=== PATIENT | female | born 1955 | race American Indian/Alaskan Native ===

== ENCOUNTER 2017-02-02 06:50 | Outpatient (CLI) | payer OTHER ==
--- NOTE | 2017-02-02 11:03 | Fluoroscopy Report ---
UPPER GI INDICATION: Dyspepsia. Lap band. COMPARISON: 03/23/2014 abdominal series. FINDINGS: Upper GI performed. Patient swallowed thick barium without any difficulty. Banquet Server view demonstrates normal appearance of the lap band and its connector tubing leading to the port overlying L4 vertebral body in the midline. Nonobstructive bowel gas pattern with ascending colon stool noted. Few pelvic vascular calcifications. Demineralized bones with multilevel spinal degenerative changes. Initial swallows demonstrate normal esophageal caliber and mucosal pattern, to the extent assessed, though subsequent swallows in conjunction with peristalsis, mildly distend the esophagus, greatest distally near the GE junction with caliber upto approximately 3 cm. Persistent stasis of barium column in the distal esophagus also noted. Small hiatal hernia possible. Small amount of contrast passage through the lab band into the remainder stomach though noted. Delayed, approximately 15 minutes post images again demonstrate dilated distal esophagus with maximum caliber upto 5-6 cm and persistent standing barium column. Increased contrast though now seen opacifying the remainder distal stomach and proximal small bowel. Normal imaged duodenum bulb and C-loop. CONCLUSION: 1. Slow passage of contrast through the lap band, as described with persistent standing contrast column in the dilated distal esophagus, as described. Please correlate. 2. Lap band radiographic appearance is though stable since March 2014. Few other incidental findings, as above. Thank you for the opportunity to participate in this patient's care.
== END 2017-02-02 06:51 | disposition home or self-care (01) ==
LOC: FLUORO 06:50
PROVIDERS: ATTEND Specialist
DX: K30 Functional dyspepsia (principal); K22.8 Other specified diseases of esophagus; N28.89 Other specified disorders of kidney and ureter
CPT/HCPCS: 74241

== ENCOUNTER 2017-08-31 09:03 | Outpatient (CLI) | payer OTHER ==
--- NOTE | 2017-09-03 10:24 | Mammography Report ---
BILATERAL MAMMOGRAM: FINDINGS: The breasts are almost entirely fat (<25% glandular). No mass, distortion, suspicious calcification, or skin change is seen. No significant change when compared to prior examination in 2015. CAD was utilized. IMPRESSION: Negative mammogram. There is no mammographic evidence of malignancy. RECOMMENDATION: Follow-up per ACS guidelines. BI-RADS CATEGORY: 1 = Negative ACR BI-RADS MAMMOGRAPHIC CODES: 0 = Needs additional imaging evaluation; 1 = Negative; 2 = Benign; 3 = Probably benign; 4 = Suspicious; 5 = Malignant; 6 = Known biopsy-proven malignancy COMMENT: 1. Dense breast tissue, i.e., adenosis, fibrocystic changes, etc., may obscure an underlying neoplasm. 2. Approximately 10% of cancers are not detected with mammography. 3. A negative mammography report should not delay biopsy if a clinically suspicious mass is present. COMMENT: Patient follow-up letters are generated in [employer].
== END 2017-08-31 09:04 | disposition home or self-care (01) ==
LOC: SPVWC 09:03
PROVIDERS: ATTEND Specialist
DX: Z12.31 Encounter for screening mammogram for malignant neoplasm of breast (principal)
CPT/HCPCS: 77067; G0202

== ENCOUNTER 2018-09-06 09:20 | Outpatient (CLI) | payer OTHER ==
--- NOTE | 2018-09-06 13:04 | Mammography Report ---
BILATERAL DIGITAL SCREENING MAMMOGRAM with CAD: 09/06/18 09:20:00 CLINICAL: Routine screening. COMPARISON:08/31/17 and 09/09/15 FINDINGS: The breasts are almost entirely fatty. No mass, suspicious architectural distortion or suspicious calcifications. IMPRESSION: No mammographic evidence of malignancy. BI-RADS CATEGORY: 1 - - Negative RECOMMENDATION: Routine mammographic screening in one year. COMMENT: Patient follow-up letters are generated by our [employer] application.
== END 2018-09-06 09:21 | disposition home or self-care (01) ==
LOC: SPVWC 09:20
PROVIDERS: ATTEND Specialist
DX: Z12.31 Encounter for screening mammogram for malignant neoplasm of breast (principal); Z90.710 Acquired absence of both cervix and uterus
CPT/HCPCS: 77067